=== PATIENT | male | born 1990 | race Native Hawaiian/Other Pacific Islander ===

== ENCOUNTER 2018-04-21 11:31 | Emergency (ER) | payer OTHER ==
[~2018-04-21] VITALS: Ht 175.3 cm; Wt 77.1 kg
[2018-04-21] MEDS ORDERED: KEFLEX500 M1 PO (12:09)
[2018-04-21 13:07] VITALS: BP 112/69
== END 2018-04-21 12:40 | disposition home or self-care (01) ==
LOC: ER 11:31
DX: S61.233A Puncture wound without foreign body of left middle finger without damage to nail, initial encounter (principal); Z23 Encounter for immunization; Z87.891 Personal history of nicotine dependence; X58.XXXA Exposure to other specified factors, initial encounter; Y92.89 Other specified places as the place of occurrence of the external cause; Y99.0 Civilian activity done for income or pay; Y99.8 Other external cause status